=== PATIENT | female | born 1970 | race Caucasian/White ===

== ENCOUNTER 2017-07-17 19:08 | Emergency (ER) | payer OTHER, MEDICAID ==
[2017-07-17 19:22] VITALS: RESP 16; TEMP 98.8; O2SAT 96
--- NOTE | 2017-07-17 20:45 | EDPHY ---
H & P Stated Complaint: left ankle inj playing soccer 90 minutes ago HPI/ROS: Chief complaint: Ankle injury History of present illness: This is a 46-year-old female who presents to the emergency department for an ankle injury. Patient was playing soccer an hour and half prior to arrival when she rolled her ankle. Since then she has had pain. No report of open wounds. No abnormal coolness or paresthesias. No other injuries reported. - Personal History LMP (Females 10-55): 1-7 Days Ago Current Tetanus/Diphtheria Vaccine: Unsure Current Tetanus Diphtheria and Acellular Pertussis (TDAP): Unsure - Medical/Surgical History Hx Asthma: No Hx Chronic Respiratory Disease: No Hx Diabetes: No Hx Cardiac Disease: No Hx Renal Disease: No Hx Cirrhosis: No Hx Alcoholism: No Hx HIV/AIDS: No Hx Splenectomy or Spleen Trauma: No Other PMH: RA, left ankle fx, - Social History Smoking Status: Never smoked - Physical Exam Exam: General appearance: Alert, nontoxic Skin: No open wounds to the ankle or foot Musculoskeletal: Tenderness along the medial malleolus and medial aspect of the foot. She can move the digits the ankle well. Vascular exam: Normal pulses and capillary refill in the foot Neurologic exam: The patient has normal sensation and motor function distal to the injury. Constitutional: Initial Vital Signs Temperature (C) 37.1 C 07/17/17 19:18 Heart Rate 74 07/17/17 19:18 Respiratory Rate 16 07/17/17 19:18 Blood Pressure 129/99 H 07/17/17 19:18 O2 Sat (%) 96 07/17/17 19:18 O2 Delivery Mode Room Air Allergies/Adverse Reactions: Iodinated Contrast- Oral and IV Dye Allergy (Verified 04/16/10 16:27) Dyspnea Home Medications: Medication Instructions Recorded Enbrel 07/17/17 Medical Decision Making - Diagnostics Imaging Results: Imaging Impressions Ankle X-Ray 07/17/17 19:30 Impression: Negative. No acute fracture. Foot X-Ray 07/17/17 20:31 Impression: 1. No acute fracture. 2. 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 Imaging: Discussed imaging studies w/ mixing machine tender Radiologist, I viewed and interpreted images myself ED Course/Re-evaluation: Patient seen under the supervision of my primary supervising physician Dr. Aide Dolan. Patient presents to the emergency department for an ankle injury. The ankle and foot are neurovascularly intact. X-rays negative. I will treat her for sprain/strain. She is referred to Orthopedics for recheck. Home care is discussed. Return precautions are given. Differential Diagnosis: Included but not limited to contusion, sprain, strain, fracture Departure - Departure Disposition: Home, Routine, Self-Care Clinical Impression: Ankle sprain Qualifiers: Encounter type: initial encounter Involved ligament of ankle: unspecified ligament Laterality: left Qualified Code(s): S93.402A - Sprain of unspecified ligament of left ankle, initial encounter Condition: Good Instructions: Ankle Sprain (ED) Additional Instructions: Follow-up with primary care doctor or orthopedic doctor for recheck If symptoms worsen or new symptoms develop return to the emergency room for recheck Referrals: NONE *PRIMARY CARE P,. [Primary Care Provider] - As per Instructions Naveen Munoz MD [Medical Doctor] - As per Instructions
[2017-07-17 21:25] VITALS: BP 112/64; PULSE 66
== END 2017-07-17 21:25 | disposition home or self-care (01) ==
DX: S93.402A Sprain of unspecified ligament of left ankle, initial encounter (principal); X58.XXXA Exposure to other specified factors, initial encounter; Y99.8 Other external cause status; Y93.66 Activity, soccer
CPT/HCPCS: 73610; 73630; 99283; L4350